=== PATIENT | male | born 1955 | race Caucasian/White ===

== ENCOUNTER 2023-05-05 14:24 | Observation (INO) | payer MEDICARE ==
[~2023-05-05] VITALS: Ht 177.8 cm; Wt 94.3 kg
[2023-05-05 15:10] LABS: BASOPHILS ABSOLUTE AUTO 0.02 K/mm3 (0.00-0.23); BASOPHILS PERCENT AUTO 0 % (0-2); EOSINOPHILS ABSOLUTE AUTO 0.09 K/mm3 (0.00-0.68); EOSINOPHILS PERCENT AUTO 1 % (0-6); Hematocrit 40.4 % (37.0-53.0); IMMATURE GRAN ABSOLUTE AUTO 0.04 K/mm3 (0.00-0.10); IMMATURE GRAN PERCENT AUTO 0 % (0-1); LYMPHOCYTES ABSOLUTE AUTO 1.01 K/mm3 (0.84-5.20); LYMPHOCYTES PERCENT AUTO 11 % (21-46); MONOCYTES ABSOLUTE AUTO 0.87 K/mm3 (0.16-1.47); MONOCYTES PERCENT AUTO 9 % (4-13); Mean Corpuscular HGB 30.1 pg (26.0-34.0); Mean Corpuscular HGB Conc 37.1 g/dL (31.5-36.5); Mean Corpuscular Volume 81 fL (80-100); Mean Platelet Volume 9.5 fL (9.1-12.4); NEUTROPHILS ABSOLUTE AUTO 7.37 K/mm3 (1.96-9.15); NEUTROPHILS PERCENT AUTO 78 % (41-73); Platelet Count 265 K/mm3 (150-400); RDW Coefficient Variation 13.2 % (11.7-14.2); RDW Standard Deviation 38.8 fL (35.1-46.3); Red Blood Cell Count 4.98 M/mm3 (4.30-5.90)
[2023-05-05] MEDS ORDERED: LOPE2C PO (15:15)
[2023-05-05] MEDS ORDERED: Bentyl10 MG PO (15:15)
[2023-05-05] MEDS ORDERED: Tessalon200 MG PO (15:16)
[2023-05-05] MEDS ORDERED: DIPATR PO (15:16)
[2023-05-05] MEDS ORDERED: ENTRESTO 49 MG1 EACH PO (15:17)
[2023-05-05] MEDS ORDERED: A-HYDROCORT100 M1 IV (15:17)
[2023-05-05] MEDS ORDERED: KETO.5OPSO BOTHEYES (15:17)
[2023-05-05] MEDS ORDERED: IBUP200 PO (15:18)
[2023-05-05] MEDS ORDERED: PYRI100 PO (15:19)
[2023-05-05] MEDS ORDERED: POTA10T PO (15:19)
[2023-05-05] MEDS ORDERED: HYDCOR10 PO (15:20)
[2023-05-05] MEDS ORDERED: ASPI81CH PO (15:20)
[2023-05-05] MEDS ORDERED: PREG200 PO (15:21)
[2023-05-05] MEDS ORDERED: MELA3 PO (15:21)
[2023-05-05] MEDS ORDERED: DEPO-TESTO200 MG/1 M IM (15:22)
[2023-05-05] MEDS ORDERED: Prozac40 MG PO (15:23)
[2023-05-05] MEDS ORDERED: Prozac20 MG PO (15:24)
[2023-05-05] MEDS ORDERED: BUPR150ER PO (15:26)
[2023-05-05] MEDS ORDERED: Budeprion Xl300 MG PO (15:27)
[2023-05-05] MEDS ORDERED: OMEP20ER PO (15:27)
[2023-05-05] MEDS ORDERED: ONDA4ODT MM (15:28)
[2023-05-05] MEDS ORDERED: LEVSOD112 PO (15:28)
[2023-05-05 15:31] LABS: Albumin, Blood 3.8 g/dL (3.4-5.0); Albumin/Globulin Ratio 1.3 (0.8-1.8); Bilirubin, Total 0.6 mg/dL (0.1-1.0); Bun/Creatinine Ratio 19.9 (12.0-20.0); Calcium, Blood 8.9 mg/dL (8.5-10.1); Creatinine, Blood 0.81 mg/dL (0.60-1.20); Total Protein, Blood 6.8 g/dL (6.4-8.2)
[2023-05-05] MEDS ORDERED: CYCL10 PO (15:31)
[2023-05-05 16:43] LABS: Source, Urine Voided
[2023-05-05 16:49] LABS: Appearance, Urine Clear (Clear); Bilirubin, Urine Neg (Neg); Blood, Urine Neg (Neg); Color, Urine Yellow (P-Yellow); Glucose Qualitative, Urine Neg (Neg); Ketones, Urine Neg (Neg); Leukocyte Esterase, Urine Neg (Neg); Nitrite, Urine Neg (Neg); Protein, Urine 1+ (Neg); Urobilinogen, Urine NORM (Normal)
[2023-05-05 20:27] VITALS: BP 159/84
--- NOTE | 2023-05-05 22:20 | NUR ---
PATIENT IS A NEW ADMIT FROM THE ED. ARRIVED VIA W/C AND TWO ASSIST TO BED. AXOX 3 WITH CONFUSION AND FORGETFUL. SPOUSE IN ROOM AND CONFIRMS INCREASE CONFUSION T/O DAY. THEY REPORT TRAVELING TO [place] FROM [place]. TELEMETRY PLACED AND NSR 70'S. DENIES CHEST PAIN, SOB, AND N/V. REPORTS HAS SPINAL CORD STIMULATOR. SCATTER BRUISING FROM RECENT GLF ON LEFT ELBOW, TOP/BACK OF HEAD. SPOUSE ALSO REPORTS SKIN CANCER REMOVED FROM HEAD X THREE SITE OVER LAST YEAR. UA COLLECTED AND SENT TO LAB. NS STARTED AND INFUSING AT 75 mL/HR. FOOD PROVIDED PER ORDER. HOME CPAP BROUGHT BY SPOUSE AND RT WILL SETUP PER ORDERS. ON ROOM AIR. WCTM.
--- NOTE | 2023-05-05 23:43 | NUR ---
PATIENT REFUSING HOME CPAP SETUP AT THIS TIME. SPOUSE STAYING THE NIGHT. BOTH OUT OF TOWN. WCTM.
[2023-05-06 04:06] VITALS: BP 148/91
--- NOTE | 2023-05-06 05:17 | NUR ---
SHIFT SUMMARY PATIENT REMAINS FORGETFUL AT TIMES THINKING HIS HEART MONITOR IS A CALL LIGHT. ALSO REPORTED RIGHT FOOT PAIN AND HIS SPOUSE CORRECTED HIM SAYING RIGHT SHOULDER PAIN. AXOX 3 AND TWO ASSIST TO BR WITH UNSTEADY GAIT. USING URINAL AT BEDSIDE. ON ROOM AIR. PIV REMAINS INTACT. NS INFUSING AT 75 mL/HR. REPORTS HAS SPINAL CORD STIMULATOR. VISUAL HALLUCINATIONS AT TIMES. REFUSED CPAP AND LATER RT SETUP HOME CPAP. SPOUSE STAYED THE NIGHT. DENIES CHEST PAIN, SOB, AND N/V. VSS/AFEBRILE. FIRE SAFETY AND EDUCATION PROVIDED IN ROUNDINGS. HOSPITALIST DR KLINE ADDED DESMOPRESSIN O.1 MG BID TO EMAR PER PATIENT/SPOUSE REQUEST AND TO START NOW. CALL LIGHT IN REACH. BED IN LOWEST POSITION. WILL CONTINUE TO MONITOR UNTIL DAY SHIFT NURSE ASSUMES CARE.
[2023-05-06 05:57] LABS: Calcium, Blood 8.9 mg/dL (8.5-10.1); Creatinine, Blood 0.73 mg/dL (0.60-1.20); Potassium, Blood 4.4 mmol/L (3.5-5.5)
[2023-05-06 08:02] VITALS: BP 168/95
[2023-05-06] MEDS ORDERED: DDAVP0.1 M1 PO (12:37)
--- NOTE | 2023-05-06 14:00 | NUR ---
PT AWAKE AT START OF SHIFT, RESTING QUIETLY WITH BIPAP ON; IN RM AT BS, REPORTING PT STARTING TO FEEL BETTER AND SEEMS TO BE GETTING CLOSE TO BASELINE AGAIN. PT UP TO CHAIR AT BS FOR BREAKFAST, ABLE TO TX WITH 1P ASSIST. PT'S MOBILITY IMPROVED AND MORE STABLE. DR FLORES IN TO SEE PT AND , DICUSSING PLAN OF CARE. PT WANTING TO GO HOME. D/C CRITERIA DISCUSSED WITH PT AND ; BOTH VERBALIZED UNDERSTANDING. PT ABLE TO AMBULATE TO [facility] AND AROUND RM, FIRST WITH FWW AND THEN WITH SBA FOR SAFETY. PT ABLE TO AMBULATE SAFELY IF HE DOESN'T GET IN A HURRY. PT UP TO SHOWER WITH SBA FROM . D/C ORDERS PLACED AND REVIEWED WITH PT AND . BOTH VERBALIZED UNDERSTANDING. PT DENIED FURTHER NEEDS AND ASSISTED OUT TO 'S CAR VIA W/C. BELONGINGS TAKEN WITH .
== END 2023-05-06 13:16 | disposition home or self-care (01) ==
LOC: ER 14:24 → MEDS 14:25
PROVIDERS: Emergency Medicine; Physician Assistant; ADMIT Nurse Practitioner Acute Care
DX: G92.8 Other toxic encephalopathy (principal); E87.1 Hypo-osmolality and hyponatremia; E23.0 Hypopituitarism; F06.70 Mild neurocognitive disorder due to known physiological condition without behavioral disturbance; F41.8 Other specified anxiety disorders; K21.9 Gastro-esophageal reflux disease without esophagitis; I50.32 Chronic diastolic (congestive) heart failure; I25.10 Atherosclerotic heart disease of native coronary artery without angina pectoris; Z79.82 Long term (current) use of aspirin; Z79.890 Hormone replacement therapy; Z79.899 Other long term (current) drug therapy
CPT/HCPCS: 36415; 51798; 70450; 71045; 80048; 80053; 82947; 83690; 83880; 83930; 83935; 84295; 84300; 84443; 85025; 93005; 93010; 94660; 94762; 96372; 96374; 96376; 99285-25; A9270; G0378; J1650; J1720; J7030